=== PATIENT | female | born 1980 | race Caucasian/White ===

== ENCOUNTER 2016-10-29 03:29 | Inpatient (IN) | payer OTHER ==
--- NOTE | ~2016-10-29 | HP ---
Unit #: [id number] #: [id number] Patient: REBECCA HERRERA [id number] [place] [address] [id number] I MR#: [id number] NAME: REBECCA HERRERA ROOM: [facility] Age: 36 Sex: F Admission Date: 10/29/2016 : 1980 Attending Physician: Alex Styles M.D. Admitting Physician: Alex Styles M.D. Primary Care Physician: Primary Care Physician No HISTORY AND PHYSICAL HISTORY OF PRESENT ILLNESS Rebecca is a 36 year old admitted to [address] [place] [address] with psychotic behavior. She is a poor historian so her history is taken from her chart. PAST MEDICAL HISTORY High blood pressure. PAST SURGICAL HISTORY Nothing reported. ALLERGIES No known drug allergies. SOCIAL HISTORY Smokes 1 pack per day. Drinks alcohol on occasion. No history of illicit drug use. FAMILY HISTORY Medically noncontributory. REVIEW OF SYSTEMS She does not answer any questions appropriately. There are no reports of nausea, vomiting or diarrhea. She has had no cough or increased temperature. CURRENT MEDICATIONS 1. Risperdal 1 mg q.h.s. 2. Nicotine patch 14 mg daily. 3. Lopressor 25 mg b.i.d. 4. Milk of Magnesia p.r.n. 5. Maalox p.r.n. 6. Tylenol p.r.n. PHYSICAL EXAMINATION GENERAL: Alert, well-nourished, in no apparent distress. VITAL SIGNS: Blood pressure 160/84, heart rate 90, respirations 16, temperature 99.1. SKIN: Warm and dry without rash or lesion. HEENT: Normocephalic. TMs not viewed. Oral and nasal passages clear. Conjunctivae clear. PERRLA. EOMs intact. NECK: Supple without lymphadenopathy or thyromegaly. HEART: Regular rate and rhythm without murmur. LUNGS: Clear. Unit #: [id number] #: [id number] Patient: REBECCA HERRERA ABDOMEN: Soft, nontender. : Not done. EXTREMITIES: No evidence of cyanosis, clubbing or edema. Moves all without focal deficit. NEUROLOGICAL: Unable to complete extended exam. She does move all extremities without focal deficit. Hand admissions officer is equal and gait is normal. IMPRESSION Psychiatric admission. RECOMMENDATIONS PSYCHIATRIC: Per psychiatrist. MEDICAL: See no contraindications to participate in facility's activities. MEDICAL PROGNOSIS Good. MEDICAL CONDITION Stable. Dictated by... Zaina Briggs P.A.-C. for Mary Patel/gualberto TD: 10/30/2016 17:17 JOB #: [id number] HISTORY AND PHYSICAL X Zaina Briggs X HISTORY AND PHYSICAL
--- NOTE | ~2016-10-29 | PN ---
Unit #: [id number] #: [id number] Patient: REBECCA HERRERA [id number] [facility] [address] [place] [address] [id number] I MR#: [id number] NAME: REBECCA HERRERA ROOM: P130 Age: 36 Sex: F Admission Date: 10/29/2016 : 1980 Attending Physician: Alex Styles M.D. Admitting Physician: Alex Styles M.D. Primary Care Physician: Primary Care Physician Elo TANNER PROGRESS NOTES DATE OF SERVICE: 10/31/2016 DISCUSSION Rebecca is showing mild improvement today, but stays in her room much of the day and has a sparse speech pattern with minimal memory of events prior to coming to the hospital. She is alert and oriented to person and location only. Memory and concentration are poor, and thought processes appear disturbed by psychosis. ASSESSMENT Substance-induced psychotic disorder. PLAN Continue current medications and washout. Dictated by... Mary Bernal/linda TD: 11/01/2016 05:45 JOB #: [id number] [facility] PROGRESS NOTES X Alex Stylse MD PROGRESS NOTE
--- NOTE | ~2016-10-29 | PA ---
Unit #: [id number] #: [id number] Patient: REBECCA HERRERA [id number] [place] [address] [id number] I MR#: [id number] NAME: REBECCA HERRERA ROOM: [facility] Age: 36 Sex: F Admission Date: 10/29/2016 : 1980 Date of Assessment: 10/29/2016 Attending Physician: Alex Styles M.D. Admitting Physician: Alex Styles M.D. Primary Care Physician: Primary Care Physician No PSYCHIATRIC ASSESSMENT DATE OF SERVICE 10/29/2016 INFORMANTS The patient, partially reliable; [facility], reliable; [facility], reliable. CHIEF COMPLAINT "Acting strange this week." HISTORY OF PRESENT ILLNESS Rebecca Herrera is a 36-year-old woman with no previous psychiatric history, whose parents reported that she had been hallucinating, both visual and auditory and feeling extremely paranoid in the home. The patient has also noticed a decreased appetite and soft rambling speech. There were no specific stressors or traumatic events and there is questionable history of using "spice," but no confirmation. After the patient was evaluated at [facility], where most of her laboratory studies were negative, she was transferred to [facility]. PAST PSYCHIATRIC HISTORY As noted, the patient has no previous inpatient psychiatric history. She has taken Prozac from her primary care physician and gets alprazolam "when I need it" p.r.n. for anxiety. She has no history of psychotic symptoms. FAMILY PSYCHIATRIC HISTORY The patient's sister suffers from depression. SOCIAL HISTORY The patient is a high-school graduate, who has had a long-term employment, but has not worked in the last week. She lives with her biological parents and daughter. She has some financial problems due to not working recently. PAST MEDICAL HISTORY Significant for history of hypertension. MEDICATIONS Metoprolol 25 mg p.o. b.i.d. for hypertension. ALLERGIES No known medication allergies. Unit #: [id number] #: [id number] Patient: REBECCA HERRERA SUBSTANCE ABUSE HISTORY There is a suspicion of "spice" use, but no confirmation. The patient uses p.r.n. benzodiazepines as prescribed. MENTAL STATUS EXAMINATION The patient presented as a disheveled woman, who appeared her stated age. She had difficulty focusing and cooperating with the examination. Her vital signs were temperature 99.1, blood pressure 159/84, respirations 18, and pulse was unavailable. Her speech was soft, sparse with minimal informative content. Her musculoskeletal examination demonstrated psychomotor slowing. Her mood appeared euthymic with a flat affect. She was alert and oriented to person and location, but not to situation or time and had minimal memories of events prior to coming to the hospital for approximately the last week. Her thought processes were somewhat disorganized and there was suggestion of paranoia. She denied SI or HI. ASSETS AND LIABILITIES The patient is in general good health and has supportive family. Liabilities include possible recent drug use. 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 AXIS II: No diagnosis. AXIS III: None acute. AXIS IV: AXIS V: PSYCHIATRIC PLAN The patient was admitted and placed on psychosis precautions. I will empirically begin Risperdal 1 mg q.h.s. due to apparent drug-induced psychosis, although we will continue to monitor her medical condition and make further recommendations as appropriate. Her metoprolol will be continued and she will enroll in dual diagnosis groups and activities. TREATMENT GOALS Clarification of diagnosis, clarity of mental status, improvement in insight, and improvement in coping skills. DISCHARGE PLANNING Follow up with primary care physician with possible community mental health referral for either chemical dependence or psychiatric treatment as indicated. ESTIMATED LENGTH OF STAY 5 days. Dictated by... Alex Styles M.D. /linda TD: 10/30/2016 05:32 JOB #: [id number] Unit #: [id number] #: [id number] Patient: REBECCA HERRERA PSYCHIATRIC ASSESSMENT X Alex Styles MD X PSYCHIATRIC ASSESSMENT
--- NOTE | ~2016-10-29 | DS ---
Unit #: [id number] #: [id number] Patient: REBECCA HERRERA [id number] [facility] [address] [place] [address] [id number] I MR#: [id number] NAME: REBECCA HERRERA ROOM: 30 Age: 36 Sex: F Admission Date: 10/29/2016 : 1980 Discharge Date: 11/01/2016 Attending Physician: Alex Styles M.D. Primary Care Physician: Primary Care Physician No DISCHARGE SUMMARY REASON FOR ADMISSION Rebecca is a 36-year-old woman with previous history of anxiety and depression, who was treated at [facility] when she became extremely paranoid, hallucinating with both visual and auditory hallucinations. There was concern that she may have been over using alprazolam, and possibly using "spice," but no confirmation was available. [facility]. DIAGNOSTIC STUDIES LABORATORY RESULTS: Please see referring hospital records. Per their records, I note that her toxicology screen was negative including for benzodiazepines. HOSPITAL COURSE The patient was admitted and placed on psychosis precautions. Risperdal 1 mg at bedtime was provided for what appeared to be a drug-induced psychosis. The patient had a little memory of events prior to coming to the hospital, although her memory gradually cleared. Her mental status improved with no further hallucinations, confusion, or disorientation. She was still not able to tell me if she had used any illicit substance prior to admission, and believes that it may have been primarily occasional overuse of alprazolam because her mental status change. Nonetheless, she was able to discharge in good condition with no further need for medication. DISCHARGE DIAGNOSES AXIS I: Stimulant-induced mood disorder with perceptual disturbance; benzodiazepine abuse. AXIS II: No diagnosis. AXIS III: None acute. AXIS IV: AXIS V: DISCHARGE INSTRUCTIONS Follow up with her private psychiatrist and therapist. DISCHARGE MEDICATIONS Metoprolol 50 mg b.i.d. for hypertension. The patient was continued on any psych medications. Her doctor wishes to continue prescribing but none were given at the time of discharge. Risperdal was discontinued due to lack of outpatient indication. Unit #: [id number] #: [id number] Patient: REBECCA HERRERA CONDITION AT DISCHARGE Improved. PROGNOSIS Fair to good. DIET AND ACTIVITY Per primary care doctor and psychiatrist. Dictated by... Mary Bernal/linda TD: 11/02/2016 02:48 JOB #: [id number] DISCHARGE SUMMARY Page 1 of 1 X Alex Styles MD X DISCHARGE SUMMARY
== END 2016-11-01 18:55 | disposition home or self-care (01) | DRG 897 ==
LOC: P2L 03:29 → P1S 10-30 22:14
DX: F15.122 Other stimulant abuse with intoxication with perceptual disturbance (principal); F17.210 Nicotine dependence, cigarettes, uncomplicated; F19.10 Other psychoactive substance abuse, uncomplicated